=== PATIENT | male | born 1980 | race Asian ===

== ENCOUNTER → 2016-11-25 | Outpatient (CLI) | payer BC ==
[2016-09-08 13:30] VITALS: BP 129/87
[~2016-11-25] MED LIST: HYDR-971 PO; ONDA4TAB10 SL; PANT40TA3 PO
--- NOTE | 2016-11-25 10:26 | RAD ---
MRCP, 11/25/2016: History: Possible pancreatic mass Imaging of the upper abdomen was performed in axial and coronal planes utilizing a variety of imaging sequences including T2 weighted, fat-suppressed T2 weighted and opposed phase gradient echo sequences. 2-D and 3-D MRCP sequences were performed with and without respiratory gating with 3-D MIP images were reconstructed. No gallstones are identified. The gallbladder neck and cystic duct are tortuous, folded over upon themselves. The intrahepatic bile ducts and common bile duct are of normal caliber. No filling defect is seen to suggest a retained calculus. The pancreatic duct is quite small and shows no specific abnormality. The possible tiny cystic lesion in the pancreatic body seen on the 09/08/2016 CT study is not identified on these MRCP sequences. This may be due to its small size and the fact that MRCP sequences are not optimized for evaluation of the pancreatic parenchyma. No hepatic, splenic or renal abnormality is seen. IMPRESSION: 1. No significant biliary tract abnormality is detected. 2. Follow-up multiphase CT scanning may be useful for further evaluation of the possible tiny pancreatic body lesion noted on the 09/08/2016 exam.
== END | disposition home or self-care (01) ==
LOC: MERGE 12:47 → MRI 12:47
PROVIDERS: ATTEND Internal Medicine Gastroenterology
DX: K85.90 Acute pancreatitis without necrosis or infection, unspecified (principal)
CPT/HCPCS: 74181

== ENCOUNTER 2020-07-09 06:16 | Emergency (ER) | payer BC ==
[~2020-07-09] VITALS: Ht 160 cm; Wt 61.0 kg
[~2020-07-09 06:16] MED LIST changes: +HYDR-3164 PO; -HYDR-971 PO; -PANT40TA3 PO; +PANT40TA77 PO
[2020-07-09] MEDS ORDERED: IV NORMAL SALINE 1000ML BAG 1,000 ML IV ONE (07:45)
[2020-07-09] MEDS ORDERED: ONDANSETRON PF 4 MG/2 ML VIAL. IV ONE (07:45)
[2020-07-09] MEDS ORDERED: fentaNYL PF VIAL 100 MCG/2 ML VIAL IV ONE (07:45)
[2020-07-09] MEDS ORDERED: LIDO:MAALOX 1:1 20 ML SINGLE DOSE. SWSW ONE (07:45)
[2020-07-09 08:17] LABS: CALCIUM 9.1 mg/dL (8.5-10.1); CREATININE 0.8 mg/dL (0.7-1.3); GFR 108.2
[2020-07-09 08:22] LABS: ALBUMIN/GLOBULIN RATIO 1.1 (1.0-1.7); TOTAL BILIRUBIN 3.2 mg/dL (0.2-1.0); TOTAL PROTEIN 7.5 g/dL (6.4-8.2)
[2020-07-09 08:25] LABS: BILIRUBIN,URINE NEGATIVE (NEG); CLARITY,URINE CLEAR; COLOR,URINE YELLOW; NITRITE,URINE NEGATIVE (NEG); PH,URINE 6.5 (<5.0-8.0); PROTEIN,URINE NEGATIVE (NEG-TRACE)
[2020-07-09 08:35] LABS: BACTERIA,URINE 0 /HPF (0-FEW); RBC,URINE OCC /HPF (0-2); SQUAMOUS EPITHELIAL CELL,UR OCC /LPF; WBC,URINE OCC /HPF (0-4)
[2020-07-09 08:40] LABS: BASO % 0 % (0-3); EOS % 0 % (0-3); HEMOGLOBIN 16.5 g/dL (13.0-17.5); LYMPH # 2.5 x10^3/uL (1.0-4.8); LYMPH % 25 % (24-48); MEAN CORPUSCULAR HEMOGLOBIN 31 pg (25-35); MEAN CORPUSCULAR HGB CONC 34 g/dL (31-37); MEAN CORPUSCULAR VOLUME 90 fL (79-100); MONO # 0.6 x10^3/uL (0.0-1.1); MONO % 6 % (0-9); NEUT # 6.8 x10^3/uL (1.8-7.7); NEUT % 68 % (31-73); PLATELET COUNT 351 x10^3/uL (140-400); RED BLOOD COUNT 5.33 x10^6/uL (4.30-5.70); RED CELL DISTRIBUTION WIDTH 12.2 % (11.5-14.5)
[2020-07-09] MEDS ORDERED: IOHEXOL 300 MG/ML 100ML VIAL. IV ONE (08:45)
--- NOTE | 2020-07-09 09:13 | PHYS DOC ---
Past Medical History Past Medical History: No Pertinent History Past Surgical History: No Surgical History Smoking Status: Current Every Day Smoker Alcohol Use: None Drug Use: None General Adult EDM: Chief Complaint: ABDOMINAL PAIN HPI: HPI: Patient is a 39-year-old [place] male who presents with a 12 to 18-hour history of mid abdominal burning. He also states that he is getting a sour taste up in the back of his mouth. He does admit to drinking alcohol in the remote past but none in the last 3 years. He states that he has had this once before and was found to have a pancreas problem. In the past he was found to have a mass in the pancreas. He denies any melena or hematemesis. He has had nausea but no vomiting. He denies any fever chills or sweats. He has not been taking anything at home to take care of his burning discomfort in his abdomen. He also reports diarrhea over the last 24 hours as well. He states the pain started after eating some spicy chili at home. Patient also states that he has been excessively thirsty and urinating quite a bit. He denies any pain with ur ination or gross hematuria [] Review of Systems: Review of Systems: Constitutional: Denies fever or chills. [] Eyes: Denies change in visual acuity. [] HENT: Denies nasal congestion or sore throat. [] Respiratory: Denies cough or shortness of breath. [] Cardiovascular: Denies chest pain or edema. [] GI: Per HPI. [] : Denies dysuria. [] Musculoskeletal: Denies back pain or joint pain. [] Integument: Denies rash. [] Neurologic: Denies headache, focal weakness or sensory changes. [] Endocrine: Reports polyuria or polydipsia. [] Lymphatic: Denies swollen glands. [] Psychiatric: Denies depression or anxiety. [] Heart Score: Risk Factors: Risk Factors: DM, Current or recent (<one month) smoker, HTN, HLP, family history of CAD, obesity. Risk Scores: Score 0 - 3: 2.5% MACE over next 6 weeks - Discharge Home Score 4 - 6: 20.3% MACE over next 6 weeks - Admit for Clinical Observation Score 7 - 10: 72.7% MACE over next 6 weeks - Early Invasive Strategies Current Medications: Current Medications Medications (Trade) Dose Ordered Sig/Thierry Start Time Stop Time Status Last Admin Dose Admin Fentanyl Citrate (Fentanyl 2ml Vial) 50 mcg 1X ONCE 07/09/20 07:45 07/09/20 07:53 DC 07/09/20 08:03 50 MCG Iohexol (Omnipaque 300 Mg/ml) 75 ml 1X ONCE 07/09/20 08:45 07/09/20 08:46 DC 07/09/20 09:05 75 ML Multi-Ingredient Mouthwash/Gargle (Gi Cocktail) 20 ml 1X ONCE 07/09/20 07:45 07/09/20 07:53 DC 07/09/20 08:03 20 ML Ondansetron HCl (Zofran) 4 mg 1X ONCE 07/09/20 07:45 07/09/20 07:53 DC 07/09/20 08:03 4 MG Sodium Chloride 1,000 ml @ 1,000 mls/hr 1X ONCE 07/09/20 07:45 07/09/20 08:44 DC 07/09/20 08:03 1,000 MLS/HR Allergies: Allergies: Allergies Coded Allergies Type Severity Reaction Last Updated Verified No Known Drug Allergies 11/25/16 No Physical Exam: PE: Constitutional: Well developed, well nourished, no acute distress, non-toxic appearance. [] HENT: Normocephalic, atraumatic, bilateral external ears normal, oropharynx moist, no oral exudates, nose normal. [] Eyes: PERRLA, EOMI, conjunctiva normal, no discharge. [] Neck: Normal range of motion, no tenderness, supple, no stridor. [] Cardiovascular:Heart rate regular rhythm, no murmur [] Lungs & Thorax: Bilateral breath sounds clear to auscultation [] Abdomen: Mild tender to palp in the mid abdominal area no rebound or guarding good bowel sounds x4] Skin: Warm, dry, no erythema, no rash. [] Back: No tenderness, no CVA tenderness. [] Extremities: No tenderness, no cyanosis, no clubbing, ROM intact, no edema. [] Neurologic: Alert and oriented X 3, normal motor function, normal sensory function, no focal deficits noted. [] Psychologic: Affect normal, judgement normal, mood normal. [] Current Patient Data: Labs: Laboratory Tests Test 07/09/20 06:20 07/09/20 07:34 Urine Collection Type Void Urine Color Yellow Urine Clarity Clear Urine pH 6.5 (<5.0-8.0) Urine Specific [place] >=1.030 (1.000-1.030) Urine Protein Negative mg/dL (NEG-TRACE) Urine Glucose (UA) >=1000 mg/dL (NEG) Urine Ketones (Stick) 40 mg/dL (NEG) Urine Blood Negative (NEG) Urine Nitrite Negative (NEG) Urine Bilirubin Negative (NEG) Urine Urobilinogen Dipstick 1.0 mg/dL (0.2 mg/dL) Urine Leukocyte Esterase Negative (NEG) Urine RBC Occ /HPF (0-2) Urine WBC Occ /HPF (0-4) Urine Squamous Epithelial Cells Occ /LPF Urine Bacteria 0 /HPF (0-FEW) Urine Mucus Slight /LPF White Blood Count 10.0 x10^3/uL (4.0-11.0) Red Blood Count 5.33 x10^6/uL (4.30-5.70) Hemoglobin 16.5 g/dL (13.0-17.5) Hematocrit 48.0 % (39.0-53.0) Mean Corpuscular Volume 90 fL (79-100) Mean Corpuscular Hemoglobin 31 pg (25-35) Mean Corpuscular Hemoglobin Concent 34 g/dL (31-37) Red Cell Distribution Width 12.2 % (11.5-14.5) Platelet Count 351 x10^3/uL (140-400) Neutrophils (%) (Auto) 68 % (31-73) Lymphocytes (%) (Auto) 25 % (24-48) Monocytes (%) (Auto) 6 % (0-9) Eosinophils (%) (Auto) 0 % (0-3) Basophils (%) (Auto) 0 % (0-3) Neutrophils # (Auto) 6.8 x10^3/uL (1.8-7.7) Lymphocytes # (Auto) 2.5 x10^3/uL (1.0-4.8) Monocytes # (Auto) 0.6 x10^3/uL (0.0-1.1) Eosinophils # (Auto) 0.0 x10^3/uL (0.0-0.7) Basophils # (Auto) 0.0 x10^3/uL (0.0-0.2) Sodium Level 134 mmol/L (136-145) L Potassium Level 4.0 mmol/L (3.5-5.1) Chloride Level 98 mmol/L (98-107) Carbon Dioxide Level 28 mmol/L (21-32) Anion Gap 8 (6-14) Blood Urea Nitrogen 17 mg/dL (8-26) Creatinine 0.8 mg/dL (0.7-1.3) Estimated GFR (Cockcroft-Gault) 108.2 BUN/Creatinine Ratio 21 (6-20) H Glucose Level 274 mg/dL (70-99) H Calcium Level 9.1 mg/dL (8.5-10.1) Total Bilirubin 3.2 mg/dL (0.2-1.0) H Aspartate Amino Transferase (AST) 23 U/L (15-37) Alanine Aminotransferase (ALT) 31 U/L (16-63) Alkaline Phosphatase 100 U/L (46-116) Total Protein 7.5 g/dL (6.4-8.2) Albumin 4.0 g/dL (3.4-5.0) Albumin/Globulin Ratio 1.1 (1.0-1.7) Lipase 42 U/L (73-393) L Laboratory Tests 07/09/20 07:34 Laboratory Tests 07/09/20 07:34 Vital Signs: Vital Signs Date Time Temp Pulse Resp B/P (MAP) Pulse Ox O2 Delivery O2 Flow Rate FiO2 07/09/20 08:33 16 99 Room Air 07/09/20 06:40 98.5 52 124/82 (96) 98.5 EKG: EKG: [] Radiology/Procedures: Radiology/Procedures: []REASON: abd pain with hx of pancreatitis and pancreatic mass PROCEDURE: CT ABD PELV W/ IV CONTRST ONLY EXAM: CT ABDOMEN/PELVIS WITH CONTRAST. HISTORY: Abdominal pain, pancreatitis, pancreatic mass. TECHNIQUE: Computed tomography of the abdomen and pelvis was performed after the intravenous administration of 75 mL iodinated contrast. One or more of the following individualized dose reduction techniques were utilized for this examination: 1. Automated exposure control. 2. Adjustment of the mA and/or kV according to patient size. 3. Use of iterative reconstruction technique. COMPARISON: 09/08/2016, 11/25/2016. FINDINGS: Lung windows through the visualized portions of the bases reveal mild atelectasis. Bone windows reveal no suspicious lesions. The pancreatic parenchyma is moderately to severely atrophic. There is no pancreatic ductal dilatation or clear focal mass. There is no surrounding inflammatory change. The liver, gallbladder, spleen, adrenal glands and kidneys are unremarkable. There are no pathologically enlarged lymph nodes. The appendix is not inflamed. There is no small bowel obstruction. IMPRESSION: 1. Pancreatic parenchymal atrophy. No focal mass or clear inflammatory change. Course & Med Decision Making: Course & Med Decision Making Pertinent Labs and Imaging studies reviewed. (See chart for details) [ED course: Evaluation reveals a 39-year-old male with abdominal pain. CT scan was unrevealing his lipase was negative I did discuss with the family that he has an elevated glucose which indicates new diagnosis of diabetes. We will start him on metformin and encouraged him to follow with a primary care physician at his earliest convenience.] Dragon Disclaimer: Dragon Disclaimer: This electronic medical record was generated, in whole or in part, using a voice recognition dictation system. Departure Departure Impression: Primary Impression: Abdominal pain Qualified Codes: R10.84 - Generalized abdominal pain Additional Impression: Diabetes mellitus Qualified Codes: E11.9 - Type 2 diabetes mellitus without complications Disposition: HOME, SELF-CARE Condition: STABLE Referrals: NO PCP (PCP) Patient Instructions: 2400 Calorie Diet for Diabetes Meal Planning, Diabetes Meal Planning Guide, Diabetes and Exercise-SportsMed, Diabetes and Foot Care, Diabetes, FAQs, Diabetes, Type 2, Am I at Risk Additional Instructions: It is absolutely imperative that you follow-up with a primary care physician in the very near future Scripts Lisinopril (LISINOPRIL) 10 Mg Tablet 1 TAB PO DAILY, #30 TAB 5 Refills Prov: ELICEO CENTENO DO 07/09/20 Metformin Hcl (METFORMIN HCL) 500 Mg Tablet 500 MG PO BIDWMEALS for ANTI-DIABETIC for 30 Days, #60 TAB 2 Refills Prov: ELICEO CENTENO DO 07/09/20 Justicifation of Admission Dx: Justifications for Admission: Justification of Admission Dx: ELICEO Morales DO Jul 09, 2020 09:13
[2020-07-09 10:23] VITALS: BP 113/70
--- NOTE | 2020-07-09 10:31 | RAD ---
EXAM: CT ABDOMEN/PELVIS WITH CONTRAST. HISTORY: Abdominal pain, pancreatitis, pancreatic mass. TECHNIQUE: Computed tomography of the abdomen and pelvis was performed after the intravenous administration of 75 mL iodinated contrast. One or more of the following individualized dose reduction techniques were utilized for this examination: 1. Automated exposure control. 2. Adjustment of the mA and/or kV according to patient size. 3. Use of iterative reconstruction technique. COMPARISON: 09/08/2016, 11/25/2016. FINDINGS: Lung windows through the visualized portions of the bases reveal mild atelectasis. Bone windows reveal no suspicious lesions. The pancreatic parenchyma is moderately to severely atrophic. There is no pancreatic ductal dilatation or clear focal mass. There is no surrounding inflammatory change. The liver, gallbladder, spleen, adrenal glands and kidneys are unremarkable. There are no pathologically enlarged lymph nodes. The appendix is not inflamed. There is no small bowel obstruction. IMPRESSION: 1. Pancreatic parenchymal atrophy. No focal mass or clear inflammatory change. Electronically signed by: Jocelyne De Leon MD (07/09/2020 10:28 AM) [id number]
[2020-07-09] MEDS ORDERED: METF500T16 PO (10:38)
[2020-07-09] MEDS ORDERED: LISI10TA2 PO (10:38)
--- NOTE | 2020-07-13 08:21 | NUR ---
Late entry made to Medical Record. IV Stop time transcribed from eMAR to IV spreadsheet
== END 2020-07-09 10:44 | disposition home or self-care (01) ==
LOC: ER 06:16
DX: R10.84 Generalized abdominal pain (principal); E11.9 Type 2 diabetes mellitus without complications; R19.7 Diarrhea, unspecified; F17.200 Nicotine dependence, unspecified, uncomplicated
CPT/HCPCS: 36415; 74177; 80053; 81001; 83690; 85025; 96361; 96374; 96375; 99285; J2405; J3010; J7030; Q9967